=== PATIENT | male | born 1985 | race Caucasian/White ===

== ENCOUNTER 2023-04-05 21:41 | Inpatient (IN) | payer OTHER ==
[~2023-04-05] VITALS: Ht 180.3 cm; Wt 98.0 kg
[2023-04-05] MEDS ORDERED: ADDE30CA3 PO (23:39)
[2023-04-05] MEDS ORDERED: med rec comment (23:39)
[2023-04-05] MEDS ORDERED: METO1TAB7 PO (23:39)
[2023-04-05] MEDS ORDERED: LORazepam 2 MG TAB PO ONE (23:40)
[2023-04-05 23:46] LABS: BARBITURATES URINE NEGATIVE (NEGATIVE)
[2023-04-05 23:47] LABS: BENZODIAZEPINES URINE NEGATIVE (NEGATIVE); COCAINE METABOLITE URINE NEGATIVE (NEGATIVE); METHADONE URINE NEGATIVE (NEGATIVE); OPIATES URINE NEGATIVE (NEGATIVE); PHENCYCLIDINE URINE NEGATIVE (NEGATIVE)
[2023-04-05 23:48] LABS: AMPHETAMINES LEVEL URINE POSITIVE (NEGATIVE); CANNABINOIDS URINE POSITIVE (NEGATIVE)
[2023-04-05] MEDS ORDERED: NICOTINE 14 MG/24 HR TRANSDERMAL TD ONE (23:55)
[2023-04-06 00:17] LABS: HEMATOCRIT 39.4 % (42.0-52.0); HEMOGLOBIN 13.6 g/dl (13.5-17.5); MEAN CORPUSCULAR HEMOGLOBIN 27.5 pg (27.0-33.0); MEAN CORPUSCULAR HGB CONC 34.5 g/dl (32.0-36.5); MEAN CORPUSCULAR VOLUME 79.6 fl (80.0-96.0); PLATELET COUNT, AUTOMATED 264 10^3/uL (150-450); RED BLOOD COUNT 4.95 10^6/uL (4.30-6.10); WHITE BLOOD COUNT 10.3 10^3/uL (4.0-10.0)
[2023-04-06 00:29] LABS: ETHYL ALCOHOL (ETHANOL) < 0.003 % (0.000-0.010)
[2023-04-06 00:30] LABS: ACETAMINOPHEN LEVEL < 2.0 UG/ML (10.0-20.0); ALBUMIN 3.8 G/DL (3.2-5.2); ALKALINE PHOSPHATASE 47 U/L (46-116); ALT/SGPT 18 U/L (7.0-40); AST/SGOT 11 U/L (<34); BILIRUBIN,DIRECT 0.1 MG/DL (<0.4); BILIRUBIN,TOTAL 0.5 MG/DL (0.3-1.2); BLOOD UREA NITROGEN 10 MG/DL (9-23); CALCIUM LEVEL 8.7 MG/DL (8.5-10.1); CARBON DIOXIDE LEVEL 26 MMOL/L (20-31); CHLORIDE LEVEL 104 MMOL/L (98-107); CREATININE FOR GFR 0.72 MG/DL (0.70-1.30); GLOMERULAR FILTRATION RATE > 60.0 (>60); GLUCOSE, FASTING 104 MG/DL (60-100); POTASSIUM SERUM 3.7 MMOL/L (3.5-5.1); SALICYLATE LEVEL < 3.0 MG/DL (<30); SODIUM LEVEL 138 MMOL/L (136-145); TOTAL PROTEIN 6.2 G/DL (5.7-8.2)
[2023-04-06 00:32] LABS: THYROID STIMULATING HORMONE 6.327 uIU/ML (0.55-4.78)
[2023-04-06] MEDS ORDERED: MELA3TAB57 PO (00:41)
[2023-04-06] MEDS ORDERED: HOME MED LIST COMPLETE! XX SCH (00:45)
[2023-04-06] MEDS ORDERED: ADDE25CA PO (02:20)
[2023-04-06] MEDS ORDERED: AMPHETAMINE/DEXTROAMPHETAMINE 5 MG *ER* CAPSULE (ADDERALL XR) PO ONE (09:00)
[2023-04-06] MEDS ORDERED: METOPROLOL SUCC (TopROL XL) 50MG **XL** TAB PO ONE (09:10)
[2023-04-06] MEDS: AMPHETAMINE/DEXTROAMPHETAMINE 5 MG *ER* CAPSULE (ADDERALL XR) PO SCH (09:44)
[2023-04-06] MEDS ORDERED: LORazepam 2 MG TAB PO STA (09:54)
[2023-04-06] MEDS ORDERED: OLANZapine ORAL DISINTEGRATING TAB 5MG PO ONE ×2 (09:55→23:35)
[2023-04-06] MEDS: NICOTINE POLACRILEX 2 MG GUM PO PRN ×5 (10:10→23:43)
[2023-04-06] MEDS ORDERED: LORazepam 2 MG TAB PO ONE ×3 (17:25→23:35)
[2023-04-07] MEDS: NICOTINE POLACRILEX 2 MG GUM PO PRN ×4 (07:43→21:03)
[2023-04-07] MEDS: AMPHETAMINE/DEXTROAMPHETAMINE 5 MG *ER* CAPSULE (ADDERALL XR) PO SCH (08:57)
[2023-04-07] MEDS ORDERED: METOPROLOL SUCC (TopROL XL) 50MG **XL** TAB PO SCH (09:00)
[2023-04-07] MEDS ORDERED: ACETAMINOPHEN TAB 650MG DOSE (2X325MG) PO PRN (12:25)
[2023-04-07] MEDS ORDERED: LORazepam 2 MG TAB PO ONE (15:30)
[2023-04-07 16:27] VITALS: BP 171/96; TEMP 96.7; O2SAT 97
[2023-04-07 17:49] VITALS: BP 134/86
[2023-04-07] MEDS: traZODone 50 MG TAB PO PRN (22:25)
[2023-04-08] MEDS: NICOTINE POLACRILEX 2 MG GUM PO PRN ×6 (01:35→21:41)
[2023-04-08] MEDS: LORazepam 2 MG TAB PO PRN ×2 (05:26→15:43)
[2023-04-08] MEDS: METOPROLOL SUCC (TopROL XL) 50MG **XL** TAB PO SCH (05:36)
[2023-04-08 06:06] VITALS: BP_SYST 149; BP_SYST 190; BP_DIAS 110; BP_DIAS 92; TEMP 96.4; O2SAT 100
[2023-04-08] MEDS: ARIPiprazole 10 MG TAB PO SCH (11:43)
[2023-04-08] MEDS: AMPHETAMINE/DEXTROAMPHETAMINE 5 MG *ER* CAPSULE (ADDERALL XR) PO SCH (11:43)
[2023-04-08 18:51] VITALS: BP 140/90; TEMP 96.7; O2SAT 97
[2023-04-08] MEDS: busPIRone 5 MG TAB PO SCH (20:22)
[2023-04-08] MEDS: PILL CUTTER 1 EACH XX PRN (20:22)
[2023-04-08] MEDS: RAMELTEON 8 MG TAB (ROZEREM) PO SCH (20:22)
[2023-04-09] MEDS: NICOTINE POLACRILEX 2 MG GUM PO PRN ×5 (02:04→21:59)
[2023-04-09] MEDS: LORazepam 2 MG TAB PO PRN ×2 (04:02→13:44)
[2023-04-09 05:46] VITALS: BP 126/88; TEMP 97; O2SAT 99
[2023-04-09] MEDS: METOPROLOL SUCC (TopROL XL) 50MG **XL** TAB PO SCH (08:32)
[2023-04-09] MEDS: AMPHETAMINE/DEXTROAMPHETAMINE 5 MG *ER* CAPSULE (ADDERALL XR) PO SCH (08:33)
[2023-04-09] MEDS: ARIPiprazole 10 MG TAB PO SCH (08:33)
[2023-04-09] MEDS: busPIRone 5 MG TAB PO SCH ×2 (08:33→20:23)
[2023-04-09] MEDS ORDERED: ARIPiprazole MONOHYDRATE 400 MG INJ (ABILIFY)(FREE PSY INPT ONLY) IM ONE (09:00)
[2023-04-09 16:16] VITALS: BP 144/90; TEMP 98.3
[2023-04-09] MEDS: RAMELTEON 8 MG TAB (ROZEREM) PO SCH (20:23)
[2023-04-09] MEDS: traZODone 50 MG TAB PO PRN (20:23)
[2023-04-10] MEDS: NICOTINE POLACRILEX 2 MG GUM PO PRN ×4 (02:21→17:51)
[2023-04-10] MEDS: LORazepam 2 MG TAB PO PRN ×2 (04:53→15:02)
[2023-04-10 06:20] VITALS: BP 144/83; TEMP 97.3; O2SAT 98
[2023-04-10] MEDS: AMPHETAMINE/DEXTROAMPHETAMINE 5 MG *ER* CAPSULE (ADDERALL XR) PO SCH (08:07)
[2023-04-10] MEDS: busPIRone 5 MG TAB PO SCH ×2 (08:08→20:18)
[2023-04-10] MEDS: METOPROLOL SUCC (TopROL XL) 50MG **XL** TAB PO SCH (08:08)
[2023-04-10] MEDS ORDERED: traZODone 100 MG TAB PO PRN (11:50)
[2023-04-10 17:59] VITALS: BP 138/84; TEMP 98.9; O2SAT 99
[2023-04-10] MEDS: RAMELTEON 8 MG TAB (ROZEREM) PO SCH (20:17)
[2023-04-11] MEDS: NICOTINE POLACRILEX 2 MG GUM PO PRN ×2 (04:01→08:23)
[2023-04-11] MEDS: LORazepam 2 MG TAB PO PRN (04:23)
[2023-04-11] MEDS: AMPHETAMINE/DEXTROAMPHETAMINE 5 MG *ER* CAPSULE (ADDERALL XR) PO SCH (08:20)
[2023-04-11 08:21] VITALS: BP 132/86
[2023-04-11] MEDS: busPIRone 5 MG TAB PO SCH (08:21)
[2023-04-11] MEDS: PILL CUTTER 1 EACH XX PRN (08:21)
[2023-04-11] MEDS: METOPROLOL SUCC (TopROL XL) 50MG **XL** TAB PO SCH (08:21)
[2023-04-11] MEDS ORDERED: TRAZ-257 PO (10:21)
[2023-04-11] MEDS ORDERED: BUSP1TAB PO (10:21)
[2023-04-11] MEDS ORDERED: LORA1TAB23 PO (10:21)
[2023-04-11] MEDS ORDERED: NICO2GUM PO (10:21)
[2023-04-11] MEDS ORDERED: ABIL1INJ2 IM (10:21)
== END 2023-04-11 11:41 | disposition home or self-care (01) | DRG 753 ==
LOC: M ED 21:41 → M ED INP 04-07 12:23 → M PSY 04-07 16:20
PROVIDERS: ADMIT Student in an Organized Health Care Education/Training Program; ATTEND Student in an Organized Health Care Education/Training Program
DX: F31.9 Bipolar disorder, unspecified (principal); F41.1 Generalized anxiety disorder; I10 Essential (primary) hypertension; F17.210 Nicotine dependence, cigarettes, uncomplicated; F12.90 Cannabis use, unspecified, uncomplicated; F60.89 Other specific personality disorders; F90.9 Attention-deficit hyperactivity disorder, unspecified type; R94.6 Abnormal results of thyroid function studies; Z20.822 Contact with and (suspected) exposure to COVID-19; Z79.899 Other long term (current) drug therapy; Z91.030 Bee allergy status; Z63.5 Disruption of family by separation and divorce; R45.851 Suicidal ideations; D72.829 Elevated white blood cell count, unspecified; Z91.411 Personal history of adult psychological abuse

== ENCOUNTER → 2024-02-05 | Outpatient (REF) | payer OTHER, MEDICAID ==
[~2024-02-05] MED LIST: ABIL1INJ2 IM; ADDE25CA PO; ADDE30CA3 PO; BUSP1TAB PO; LORA1TAB23 PO; MELA3TAB57 PO; METO1TAB7 PO; NICO2GUM PO; TRAZ-257 PO; med rec comment
== END ==
LOC: M LAB REF 16:27
PROVIDERS: ATTEND Physician Assistant Medical
DX: L03.111 Cellulitis of right axilla (principal)